=== PATIENT | female | born 2005 | race African-American/Black ===

== ENCOUNTER 2023-04-15 13:54 | Observation (INO) | payer MEDICAID ==
[2023-04-15] MEDS ORDERED: PREN1CAP PO (15:09)
== END 2023-04-15 15:43 | disposition home or self-care (01) ==
LOC: LDRP 13:54
PROVIDERS: ADMIT Obstetrics & Gynecology; ATTEND Obstetrics & Gynecology
DX: O26.873 Cervical shortening, third trimester (principal); O62.9 Abnormality of forces of labor, unspecified; O26.893 Other specified pregnancy related conditions, third trimester; R10.2 Pelvic and perineal pain; R11.0 Nausea; M54.9 Dorsalgia, unspecified; Z3A.30 30 weeks gestation of pregnancy
CPT/HCPCS: 59025; 76815; 76817; 81002; G0378

== ENCOUNTER 2023-06-04 10:43 | Observation (INO) | payer MEDICAID ==
[~2023-06-04 10:43] MED LIST: PREN1CAP PO
== END 2023-06-04 12:04 | disposition home or self-care (01) ==
LOC: UNDOADMOB 10:43 → LDRP 10:43
PROVIDERS: ADMIT Obstetrics & Gynecology; ATTEND Obstetrics & Gynecology
DX: O43.113 Circumvallate placenta, third trimester (principal); Z3A.38 38 weeks gestation of pregnancy
CPT/HCPCS: 59025; 76818; 81002; 94760; G0378

== ENCOUNTER 2023-06-12 17:12 | Observation (INO) | payer MEDICAID | END 2023-06-12 19:48 | disposition home or self-care (01) | LOC: LDRP 17:12 | PROVIDERS: ADMIT Obstetrics & Gynecology; ATTEND Obstetrics & Gynecology | DX: O43.113 Circumvallate placenta, third trimester (principal); O47.1 False labor at or after 37 completed weeks of gestation; O62.9 Abnormality of forces of labor, unspecified; Z3A.39 39 weeks gestation of pregnancy | CPT/HCPCS: 59025; 76818; 81002; 94760; G0378 ==

== ENCOUNTER 2023-06-12 21:31 | Inpatient (IN) | payer MEDICAID ==
[~2023-06-12] VITALS: Ht 160 cm; Wt 76.2 kg
[2023-06-12] MEDS ORDERED: LACTATED RINGER'S 1,000 ML IV ONE (21:45)
[2023-06-12] MEDS ORDERED: NITROGLYCERIN 0.4 MG SL TAB SL PRN (21:45)
[2023-06-12] MEDS ORDERED: MORPHINE SULFATE INJ 2 MG/ml SYRG IV PRN (21:45)
[2023-06-12] MEDS ORDERED: LACTATED RINGER'S 500 ML IV ONE (21:45)
[2023-06-12] MEDS ORDERED: PHISODERM TOP SOLN 240ML BTL TOP PRN (21:45)
[2023-06-12] MEDS ORDERED: fentaNYL 400mCg/200ml W ROPIVA 200 ML EPI SCH (21:45)
[2023-06-12] MEDS ORDERED: LIDOCAINE 2%HCL (LOCAL ANESTH.) INJ 10ml MDV IJ ONE (21:45)
[2023-06-12] MEDS ORDERED: DERMOPLAST 60ML BOTTLE TOP PRN (21:45)
[2023-06-12] MEDS ORDERED: fentaNYL CITRATE 100 MCG/2 ML VL IV ONE (21:45)
[2023-06-12] MEDS ORDERED: ePHEDrine SULFATE 50 MG/ML AMP IV ONE (21:45)
[2023-06-12] MEDS ORDERED: BUTORPHANOL TARTRATE 2 MG/1 ML VIAL IV PRN ×2 (21:45)
[2023-06-12] MEDS ORDERED: LIDOCAINE 2%HCL (LOCAL ANESTH.) INJ 20ML MDV IJ PRN (21:45)
[2023-06-12] MEDS ORDERED: LACT. RINGERS/OXYTOCIN 20UNITS 500 ML IV ONE ×2 (21:45→22:15)
[2023-06-12] MEDS ORDERED: WITCH HAZEL-GLYCERIN PAD TOP PRN (21:45)
[2023-06-12] MEDS ORDERED: PENICILLIN G POT 5MIL/D5 50ML 50 ML IV ONE (21:45)
[2023-06-12] MEDS ORDERED: PROMETHAZINE HCL 25 MG/ML 1ML IV PRN (21:45)
[2023-06-12] MEDS ORDERED: LIDOCAINE HCL 2 %PF INJ 10ML AMP IJ ONE (21:45)
[2023-06-12] MEDS ORDERED: Lidocaine W-Epinephrine 1.5%-1:200,000 INJ 10ml Vial IJ ONE (21:45)
[2023-06-12] MEDS ORDERED: LIDOCAINE 1%-Mpf/Epinephrine 1:200,000 30ml VIAL IJ ONE (21:45)
[2023-06-12 22:31] LABS: Basophils # (auto) 0.1 10 ^3/uL (0-0.2); Basophils % (auto) 0.4 % (0.0-2.0); Eosinophils # (auto) 0 10 ^3/uL (0-0.8); Eosinophils % (auto) 0.2 % (0.0-7.0); Hematocrit 38.1 % (36.0-46.0); Hemoglobin 12.7 g/dL (12.2-16.2); Lymphocytes # (auto) 1.2 10 ^3/uL (0.4-5.4); Lymphocytes % (auto) 8.5 % (10.0-50.0); Mean Corpuscular Hemoglobin 30.4 pg (28.0-32.0); Mean Corpuscular Hgb Conc. 33.2 g/dL (32.0-36.0); Mean Corpuscular Volume 91.8 fL (80.0-100.0); Monocytes # (auto) 0.6 10 ^3/uL (0-1.3); Monocytes % (auto) 4.6 % (0.0-12.0); Neutrophils # (auto) 11.9 10 ^3/uL (1.6-8.6); Neutrophils % (auto) 86.3 % (37.0-80.0); Red Blood Cells 4.16 10^6/uL (4.0-5.20); Red Cell Distribution Width 14.7 % (11.8-14.3); White Blood Cell 13.8 10^3/uL (4.4-10.8)
[2023-06-12 22:46] LABS: INR 1.02 (0.9-1.15); Partial Thromboplastin Time 27.3 SEC (24.5-34.5); Prothrombin Time 10.7 sec (9.3-11.8)
[2023-06-12 22:48] LABS: Alanine Aminotransferase 12 U/L (7-40); Alkaline Phosphatase 192 U/L (46-116); Anion Gap 10 (5-15); Aspartate Aminotransferase 17 U/L (13-40); BUN/Creatinine Ratio 11.9 (10.0-20.0); Bilirubin, Total 0.5 mg/dL (0.2-1.0); Blood Urea Nitrogen 7 mg/dL (9-23); Calcium 9.3 mg/dL (8.5-10.1); Carbon Dioxide 20 mmol/L (20-30); Chloride 108 mmol/L (98-107); Glucose 76 mg/dL (74-106); Potassium 3.7 mmol/L (3.5-5.1); Sodium 138 mmol/L (136-145); Total Protein 6.7 g/dL (5.7-8.2)
[2023-06-12] MEDS ORDERED: ROPIVACAINE HCL 100 ML ONE (22:56)
[2023-06-12] MEDS ORDERED: ePHEDrine SULFATE 50 MG/ML AMP ONE (23:51)
[2023-06-13 00:55] LABS: Urine Bacteria NONE SEEN /hpf (None Seen); Urine Blood Negative /uL (Negative); Urine Clarity Clear (Clear); Urine Color Yellow (Yellow); Urine Mucus FEW (None Seen); Urine Protein, UAD TRACE (Negative); Urine Specific Gravity 1.036 (1.001-1.035); Urine Urobilinogen Normal (Negative); Urine WBC 14 /hpf (0 - 5)
[2023-06-13] MEDS: LACTATED RINGER'S 1,000 ML IV SCH ×3 (01:23→14:04)
[2023-06-13 01:36] LABS: Amphetamine Screen, Urine Neg (NEGATIVE); Barbiturate Scree,Urine Neg (NEGATIVE); Benzodiazephine Screen, Urine Neg (NEGATIVE); Cannabinoid Screen, Urine Neg (NEGATIVE); Cocaine Screen, Urine Neg (NEGATIVE); Opiate Scree,Urine Neg (NEGATIVE); Phencyclidine Screen, Urine Neg (NEGATIVE)
[2023-06-13] MEDS ORDERED: PENICILLIN G POT 5MILLION UNIT VIAL ONE (02:26)
[2023-06-13] MEDS ORDERED: ONDANSETRON HCL 4 MG/2 ML VIAL ONE (02:26)
[2023-06-13] MEDS ORDERED: STERILE WATER 10 ML ONE (02:26)
[2023-06-13] MEDS: PENICILLIN G POTASSIUM 2,500,000 UNITS in D5W 5% 50 ML IV SCH ×2 (02:40→06:41)
[2023-06-13] MEDS ORDERED: LACT. RINGERS/OXYTOCIN 20UNITS 1,000 ML IV SCH (04:00)
[2023-06-13] MEDS: ONDANSETRON HCL 4 MG/2 ML VIAL IV PRN ×2 (04:00→12:03)
[2023-06-13] MEDS ORDERED: TERBUTALINE SULFATE 1 MG/ML 1ML VIAL SC PRN (04:00)
[2023-06-13] MEDS ORDERED: ACETAMINOPHEN 325 MG TAB PO PRN (07:45)
[2023-06-13] MEDS ORDERED: ROPIVACAINE HCL 100 ML ONE (08:23)
[2023-06-13] MEDS ORDERED: miSOPROStol 100 mcg TAB ONE (10:20)
[2023-06-13] MEDS ORDERED: METHYLERGONOVINE MALEATE 0.2 MG/ML AMP IM ONE ×2 (10:21→10:31)
[2023-06-13] MEDS ORDERED: IBUPROFEN 600 MG TAB PO PRN (10:45)
[2023-06-13] MEDS ORDERED: ceFAZolin 1GM/50ML 50 ML IV SCH (14:00)
[2023-06-13] MEDS: ceFAZolin 1GM/50ML 50 ML IV SCH ×2 (14:05→22:05)
[2023-06-13] MEDS: HYDROcodone-ACET 5/325MG TAB PO PRN ×2 (15:21→20:48)
[2023-06-13 15:25] VITALS: BP 95/50; PULSE 100; RESP 18; TEMP 99.2; O2SAT 95
[2023-06-13 19:00] VITALS: BP 110/60; PULSE 90; RESP 16; TEMP 98.1; O2SAT 97
[2023-06-13] MEDS: DOCUSATE SOD 100 MG CAP PO SCH (22:04)
[2023-06-13 23:00] VITALS: BP 103/52; PULSE 88; RESP 16; TEMP 98.3; O2SAT 96
[2023-06-14 02:58] VITALS: BP 97/47; PULSE 98; RESP 18; TEMP 98.4; O2SAT 97
[2023-06-14] MEDS: HYDROcodone-ACET 5/325MG TAB PO PRN ×2 (03:40→12:07)
[2023-06-14] MEDS: ceFAZolin 1GM/50ML 50 ML IV SCH (05:58)
[2023-06-14 06:45] VITALS: BP 107/69; PULSE 99; RESP 18; TEMP 98.2; O2SAT 95
[2023-06-14 07:07] LABS: RPR Non Reactive (Non Reactive)
[2023-06-14 11:10] VITALS: BP 109/77; PULSE 97; RESP 18; TEMP 97.8; O2SAT 96
[2023-06-14] MEDS: DOCUSATE SOD 100 MG CAP PO SCH (11:10)
[2023-06-17 19:06] LABS: Treponema pallidum Ab (FTA-Ab) Non Reactive (Non Reactive)
== END 2023-06-14 12:37 | disposition home or self-care (01) | DRG 560 ==
LOC: LDRP 21:31 → OBSVTOIN 21:35 → LDRP 06-13 12:55
PROVIDERS: ADMIT Obstetrics & Gynecology; ATTEND Obstetrics & Gynecology
PROC: 10D07Z6 Extraction of Products of Conception, Vacuum, Via Natural or Artificial Opening (ICD-10-PCS; principal; 2023-06-13)
PROC: 0KQM0ZZ Repair Perineum Muscle, Open Approach (ICD-10-PCS; 2023-06-13)
PROC: 0W8NXZZ Division of Female Perineum, External Approach (ICD-10-PCS; 2023-06-13)
PROC: 3E0R3BZ Introduction of Anesthetic Agent into Spinal Canal, Percutaneous Approach (ICD-10-PCS; 2023-06-13)
PROC: 00HU33Z Insertion of Infusion Device into Spinal Canal, Percutaneous Approach (ICD-10-PCS; 2023-06-13)
DX: O69.81X0 Labor and delivery complicated by cord around neck, without compression, not applicable or unspecified (principal); Z37.0 Single live birth; J45.909 Unspecified asthma, uncomplicated; O99.824 Streptococcus B carrier state complicating childbirth; O99.52 Diseases of the respiratory system complicating childbirth; O70.1 Second degree perineal laceration during delivery; Z3A.39 39 weeks gestation of pregnancy
CPT/HCPCS: 36415; 59025; 59409; 62282; 80053; 80307; 81001; 81002; 85025; 85610; 85730; 86592; 86850; 86900; 86901; 94760; 96360; 96361; 96365; 96366; 96372; 96374; G0378; J2001; J2405; J2540; J2590; J7060